=== PATIENT | female | born 1960 | race Caucasian/White ===

== ENCOUNTER → 2018-04-22 | Outpatient (REF) ==
[~2018-04-22] MED LIST: CYCL-277 PO; HYDR-2966 PO; IOPAMIDOL 76% 75 ML INFUS BTL 75 ML ONE; SIMV-54 PO; TRAM-420 PO
--- NOTE | 2018-04-22 11:59 | RADIOLOGY IMAGING REPORT ---
[place]AC[place] [facility] [place] NAME: Priyanka Jaime : 1960 MR: [id number] V: [id number] EXAM DATE: ORDERING PHYSICIAN: NADIR LEVINE TECHNOLOGIST: Location: [facility] - [place] Patient: Priyanka Jaime : 1960 Visit/Account:[id number] Date of Sevice: 04/22/2018 EXAMINATION: CT neck with IV contrast HISTORY: Neck pain. TECHNIQUE: Axial soft tissue neck CT with IV contrast. Sagittal and coronal reformats. One of the following dose optimization techniques was utilized in the performance of this exam: Autom ated exposure control; adjustment of the mA and/or kV according to the patient's size; or use of an i terative reconstruction technique. Specific details can be referenced in the facility's radiology C T exam operational policy. CONTRAST: 75 mL of IV Isovue-370 COMPARISON: None available. FINDINGS: Masses/lesions: None. Airway: Negative. Lymph nodes: Negative. Vessels: Negative. Musculoskeletal / Body wall: Mild multilevel cervical spondylosis. Visualized orbits / brain / paranasal sinuses: Mild mucosal thickening in the maxillary sinuses. Upper chest: Negative. IMPRESSION: No suspicious mass, fluid collection, or lymphadenopathy in the neck. Report Dictated By: Moisés Buitrago MD at 04/22/2018 11:33 AM Report E-Signed By: Moisés Buitrago MD at 04/22/2018 11:55 AM [id number]
== END ==
LOC: CT 07:30
PROVIDERS: ATTEND Internal Medicine
DX: M54.2 Cervicalgia (principal)
CPT/HCPCS: 36415; 70491; 82565; Q9967

== ENCOUNTER → 2019-03-02 | Outpatient (REF) ==
[~2019-03-02] MED LIST changes: -IOPAMIDOL 76% 75 ML INFUS BTL 75 ML ONE
--- NOTE | 2019-03-02 16:53 | RADIOLOGY IMAGING REPORT ---
[place] [facility] [place] NAME: Priyanka Jaime : 1960 MR: [id number] V: [id number] EXAM DATE: ORDERING PHYSICIAN: BONIFACIO ELLIS TECHNOLOGIST: Location: [facility] - [place] Patient: Priyanka Jaime : 1960 Visit/Account:[id number] Date of Sevice: 03/02/2019 3 Views of the left third finger INDICATION: Slammed in door COMPARISON: None Available FINDINGS: No acute osseous abnormality identified. No evidence of radiopaque foreign body. Moderate DIP joint narrowing noted. Otherwise joint spaces are well maintained. IMPRESSION: No acute osseous abnormality involving the left third finger Report Dictated By: Javier Louie MD at 03/02/2019 4:43 PM Report E-Signed By: Javier Louie MD at 03/02/2019 4:46 PM WSN:[id number]
== END ==
LOC: RAD 14:23
PROVIDERS: ATTEND Family Medicine
DX: M79.645 Pain in left finger(s) (principal)